=== PATIENT | female | born 1960 | race Two or more races ===

== ENCOUNTER 2021-02-25 09:24 | Outpatient (CLI) | payer OTHER ==
[~2021-02-25 09:24] MED LIST: CIPRO750 MG PO; COPAXONE20 MG/KIT; DIOVAN HCT 160-1 TA1 PO; NEURONTIN300 MG PO; PERCOCET 5/3251 TAB PO; PRILOSEC20 MG PO; ULTRACET PO; ZOCOR20 MG PO
== END 2021-02-25 09:35 | disposition home or self-care (01) ==
LOC: SONOGRAMA 09:24 → MAMO-SONO 09:45
PROVIDERS: ATTEND Internal Medicine Rheumatology
DX: M75.81 Other shoulder lesions, right shoulder (principal)